=== PATIENT | female | born 1945 | race Caucasian/White ===

== ENCOUNTER 2018-09-09 14:28 | Emergency (ER) | payer MEDICARE, BC ==
[2018-09-09 14:44] VITALS: BP 130/73; PULSE 70
--- NOTE | 2018-09-09 15:00 | EDM.PDOC ---
ED HPI GENERAL MEDICAL PROBLEM - General Chief Complaint: General Stated Complaint: TICK BITE Time Seen by Provider: 09/09/18 14:53 Source of Information: Reports: Patient History Limitations: Reports: No Limitations - History of Present Illness INITIAL COMMENTS - FREE TEXT/NARRATIVE: patient states she doesn't feel well Hx of tick bites in the past that she felt like how she is now. She has fever, body aches. Denies chest pain, shortness of breath; no cough, denies lymphadenopathy; no burning, frequency or urgency. She doesn't want to do any type of work up; Requesting antx. - Related Data Allergies Allergy/AdvReac Type Severity Reaction Status Date / Time No Known Allergies Allergy Verified 08/18/15 08:27 Home Meds: Home Meds Levothyroxine [Synthroid] 1 tab PO DAILY 08/18/15 [History] Doxycycline [Vibramycin] 100 mg PO BID 14 Days #28 cap 09/09/18 [Rx] atorvaSTATin [Lipitor] 40 mg PO DAILY 09/09/18 [History] Past Medical History HEENT History: Reports: Cataract, Impaired Vision Neurological History: Reports: Head Trauma Endocrine/Metabolic History: Reports: Hypothyroidism - Past Surgical History HEENT Surgical History: Reports: Cataract Surgery Oncologic Surgical History: Reports: Biopsy of Breast Social & Family History - Tobacco Use Smoking Status *Q: Never Smoker - Caffeine Use Caffeine Use: Reports: Coffee - Recreational Drug Use Recreational Drug Use: No ED ROS GENERAL - Review of Systems Review Of Systems: See Below Constitutional: Reports: Fever, Chills, Malaise, Decreased Appetite Respiratory: Reports: No Symptoms Cardiovascular: Reports: No Symptoms Endocrine: Reports: Fatigue GI/Abdominal: Reports: No Symptoms : Reports: No Symptoms Musculoskeletal: Reports: Other (body aches) Skin: Reports: No Symptoms Neurological: Reports: No Symptoms Psychiatric: Reports: No Symptoms ED EXAM, GENERAL - Physical Exam Exam: See Below Exam Limited By: No Limitations General Appearance: Alert, WD/WN, No Apparent Distress Eye Exam: Bilateral Eye: EOMI, PERRL Nose: Normal Inspection, Normal Mucosa Throat/Mouth: Normal Inspection, Normal Lips, Normal Teeth, Normal Oropharynx, Normal Voice, No Airway Compromise Head: Atraumatic, Normocephalic Neck: Normal Inspection, Supple, Non-Tender, Full Range of Motion (no lymphadenopathy) Respiratory/Chest: Lungs Clear, Normal Breath Sounds Cardiovascular: Regular Rate, Rhythm GI/Abdominal: Normal Bowel Sounds, Soft Back Exam: Normal Inspection, Full Range of Motion Extremities: Normal Inspection, Normal Range of Motion, Non-Tender Neurological: Alert, Oriented, CN II-XII Intact Psychiatric: Normal Affect, Normal Mood Skin Exam: Warm, Dry, Intact, Normal Color, No Rash (no bullseye or evidence of bug bite) Course - Vital Signs Last Recorded V/S: Last Vital Signs Temp 100.2 F 09/09/18 14:47 Pulse 70 09/09/18 14:47 Resp 16 09/09/18 14:47 BP 130/73 09/09/18 14:47 Pulse Ox 89 L 09/09/18 14:47 Departure - Departure Time of Disposition: 15:00 Disposition: Home, Self-Care 01 Condition: Good Clinical Impression: Fever - Discharge Information *PRESCRIPTION DRUG MONITORING PROGRAM REVIEWED*: Not Applicable *COPY OF PRESCRIPTION DRUG MONITORING REPORT IN PATIENT GRAEME: Not Applicable Prescriptions: Doxycycline [Vibramycin] 100 mg PO BID 14 Days #28 cap Instructions: Fever, Adult Referrals: PCP,None [Primary Care Provider] - Forms: ED Department Discharge Additional Instructions: Take complete course of antibiotics You have declined blood work; I do want you to see your doctor within the next week Return to ER with worsening of symptoms Drink lots of fluids Tylenol 500 mg and ibuprofen 600 mg for fever, body aches, discomfort. Call with questions. - Problem List & Annotations (1) Fever SNOMED Code(s): 820914150 Code(s): R50.9 - FEVER, UNSPECIFIED Status: Acute Priority: Medium Current Visit: Yes Qualifiers: Fever type: unspecified Qualified Code(s): R50.9 - Fever, unspecified
== END 2018-09-09 15:12 | disposition home or self-care (01) ==
LOC: JP.ED 14:28
DX: R50.9 Fever, unspecified (principal); E03.9 Hypothyroidism, unspecified; Z98.49 Cataract extraction status, unspecified eye; Z79.899 Other long term (current) drug therapy
CPT/HCPCS: 99282; 99283